=== PATIENT | female | born 1945 | race Caucasian/White ===

== ENCOUNTER → 2017-08-16 | Outpatient (CLI) | payer MEDICARE ==
--- NOTE | 2017-08-16 15:33 | RAD ---
EXAM: 1. Lumbar spine 5 views. 2. Sacrum/coccyx 3 views. HISTORY: Acute lumbosacral pain on the right. COMPARISON: None. FINDINGS: Osteopenia is at least moderate. Vertebral body heights are maintained, and no fractures are identified. Degenerative disc disease is mild at L2-3. Alignment is maintained. A nondisplaced lucency traverses the right S1 sacral alar arch. This may be a nondisplaced fracture or superimposed artifact. No fractures are appreciated on the left. There is no clear transverse component or coccygeal fracture. The sacroiliac joints are unremarkable for patient age. Stool throughout the colon is consistent with constipation. There are atherosclerotic calcifications of the aorta. IMPRESSION: 1. Questionable nondisplaced fracture of the right sacral a left versus artifact. MRI could further assess for insufficiency lesion if there is persistent concern. 2. Moderate osteopenia. 3. Mild degenerative disc disease at L2-3. 4. Findings consistent with constipation.
--- NOTE | 2017-08-18 11:18 | RAD ---
EXAM: 1. Lumbar spine 5 views. 2. Sacrum/coccyx 3 views. HISTORY: Acute lumbosacral pain on the right. COMPARISON: None. FINDINGS: Osteopenia is at least moderate. Vertebral body heights are maintained , and no fractures are identified. Degenerative disc disease is mild at L2-3. Alignment is maintained. A nondisplaced lucency traverses the right S1 sacral alar arch. This may be a nondisplaced fracture or superimposed artifact. No fractures are appreciated on the left. There is no clear transverse component or coccygeal fracture. The sacroiliac joints are unremarkable for patient age. Stool throughout the colon is consistent with constipation. There are atherosclerotic calcifications of the aorta. IMPRESSION: 1. Questionable nondisplaced fracture of the right sacral a left versus artifact. MRI could further assess for insufficiency lesion if there is persistent concern. 2. Moderate osteopenia. 3. Mild degenerative disc disease at L2-3. 4. Findings consistent with constipation. MTDD
== END | disposition home or self-care (01) ==
LOC: DXRAD 12:26
PROVIDERS: ATTEND Physician Assistant Medical
DX: M51.36 Other intervertebral disc degeneration, lumbar region (principal); M85.88 Other specified disorders of bone density and structure, other site; I70.0 Atherosclerosis of aorta
CPT/HCPCS: 72110; 72220

== ENCOUNTER → 2019-06-29 | Outpatient (CLI) | payer MEDICARE ==
--- NOTE | 2019-06-29 09:17 | RAD ---
CHEST PA LATERAL CLINICAL INDICATION: Cough. COMPARISON: None FINDINGS: Heart is normal in size. Lungs are clear. No pneumothorax or pleural effusion. Visualized bony thorax within normal limits. IMPRESSION: No acute pulmonary process. Electronically signed by: Jason Valadez DO (06/29/2019 9:14 AM) [facility]
== END | disposition home or self-care (01) ==
LOC: PMG 08:31
PROVIDERS: ATTEND Physician Assistant Medical
DX: R05 Cough (principal)
CPT/HCPCS: 71046

== ENCOUNTER → 2019-10-21 | Outpatient (CLI) | payer MEDICARE ==
--- NOTE | 2019-10-21 12:19 | RAD ---
EXAM: Right hip and pelvis, 3 views. HISTORY: Pain. COMPARISON: None. FINDINGS: A frontal view of the pelvis and frontal and frog-leg views the right hip are obtained. There is right hip joint space narrowing with subchondral sclerosis, subchondral cyst formation and marginal spurring. There is degenerative change at the lumbosacral junction. IMPRESSION: Mild right hip osteoarthritis. Electronically signed by: Kalpana Oliver MD (10/21/2019 12:16 PM) [email or web address]
== END | disposition home or self-care (01) ==
LOC: PMG 11:47
PROVIDERS: ATTEND Physician Assistant Medical
DX: M16.11 Unilateral primary osteoarthritis, right hip (principal); M47.817 Spondylosis without myelopathy or radiculopathy, lumbosacral region
CPT/HCPCS: 73502

== ENCOUNTER → 2019-12-06 | Outpatient (CLI) | payer MEDICARE ==
--- NOTE | 2019-12-06 09:34 | RAD ---
PELVIS DATE: 12/06/2019 12:00 AM INDICATION: Pelvic pain COMPARISON: None. FINDINGS: Bones: There is no evidence of acute fracture or dislocation. Joints: Severe degenerative changes of the right hip. Mild degenerative changes of the left hip. SI joints and symphysis pubis are maintained. Miscellaneous: Moderate colonic stool burden IMPRESSION: No acute osseous abnormality. Severe right and mild left hip osteoarthritis. Electronically signed by: Rubin Johnson MD (12/06/2019 9:31 AM) [id number]
== END | disposition home or self-care (01) ==
LOC: DXRAD 08:01
PROVIDERS: ATTEND Orthopaedic Surgery Sports Medicine
DX: M16.0 Bilateral primary osteoarthritis of hip (principal)
CPT/HCPCS: 72170

== ENCOUNTER → 2020-04-14 | Outpatient (CLI) | payer MEDICARE ==
--- NOTE | 2020-04-14 08:40 | RAD ---
Bilateral shoulders, 3 views each INDICATION: Bilateral shoulder pain COMPARISON: Chest x-ray of 06/29/2019 FINDINGS: Internal rotation, external rotation and scapular Y views of both shoulders were obtained. Right shoulder again shows a large bone island in the proximal humeral metaphysis and better shown on this exam is minimal osteophytic spurring on the inferior humeral head with similar osteophytic spurring of the inferior glenoid rim. No fracture or aggressive osseous lesions. Soft tissues unremarkable. The acromioclavicular joint is within normal limits. Left shoulder shows more apparent osteophytic spurring on the proximal humeral head and irregularity to the glenoid rim, with joint space narrowing compatible with glenohumeral degenerative change. There is also mild narrowing in the subacromial space that could reflect underlying rotator cuff pathology. No fracture or aggressive osseous lesions. IMPRESSION: Bilateral glenohumeral joint degenerative change, worse on the left as described. Electronically signed by: Niall Diaz MD (04/14/2020 8:37 AM) [id number]
== END ==
LOC: PMG 07:50
PROVIDERS: ATTEND Physician Assistant Medical
DX: M19.012 Primary osteoarthritis, left shoulder (principal); M19.011 Primary osteoarthritis, right shoulder
CPT/HCPCS: 73030

== ENCOUNTER → 2021-09-24 | Outpatient (CLI) | payer MEDICARE ==
--- NOTE | 2021-09-24 08:36 | RAD ---
Exam Date: 09/24/2021 8:24 AM XR CHEST 2V Indication: Reason: CHEST CONGESTION / Spl. Instructions: / History: . Comparison: June 29, 2019 FINDINGS/ IMPRESSION: The aorta is calcified. The cardiac silhouette and pulmonary vasculature are within normal limits. There is no focal consolidation, pleural effusion or pneumothorax. Degenerative changes are seen in the spine. Lungs are hyperinflated with flattened diaphragms consistent with COPD. Electronically signed by: Claudy Garcia MD (09/24/2021 8:33 AM) [id number]
== END ==
LOC: RAD 08:12
PROVIDERS: ATTEND Physician Assistant Medical
DX: R09.89 Other specified symptoms and signs involving the circulatory and respiratory systems (principal); I70.0 Atherosclerosis of aorta; M47.814 Spondylosis without myelopathy or radiculopathy, thoracic region
CPT/HCPCS: 71046